=== PATIENT | male | born 1960 | race Caucasian/White ===

== ENCOUNTER 2024-07-06 12:06 | Emergency (ER) | payer OTHER, SELFPAY ==
[2024-07-06 12:07] VITALS: BP 160/95
[2024-07-06 12:38] LABS: % Basophils 0.3 % (0-2); % Eosinophils 0.8 % (0-6); % Monocytes 7.7 % (1.7-9.3); % Neutrophils 75.2 % (42.2-75.2); Absolute Eosinophils 0.1 10^3/uL (0-0.7); Absolute Immature Granulocytes 0.1 10^3/uL (0-0.05); Absolute Lymphocytes 0.9 10^3/uL (1.2-3.4); Absolute Monocytes 0.5 10^3/uL (0.1-0.6); Absolute Neutrophils 4.6 10^3/uL (1.4-6.5); Hematocrit 45.5 % (39.0-52.0); Hemoglobin 16.2 g/dL (13.0-18.0); Mean Corp Hgb Conc. 35.6 g/dL (33.0-37.0); Mean Corpuscular Hgb 31.3 pg (27.0-31.0); Mean Platelet Volume 11.5 fL (7.4-10.4); Nucleated Red Blood Cells % 0 % (-); Platelet Count 153 10^3/uL (130-400); Red Blood Cell Count 5.17 10^6/uL (4.70-6.10); Red Cell Dist. Width 12.5 % (11.5-14.5); White Blood Cell Count 6.1 10^3/uL (4.8-10.8)
[2024-07-06 12:48] LABS: ALT (SGPT) 44 U/L (0-50); AST (SGOT) 29 U/L (17-59); Albumin 4.8 g/dl (3.5-5.0); Alkaline Phosphatase 72 U/L (38-126); Blood Urea Nitrogen 10 mg/dl (9-20); Calcium 9.3 mg/dl (8.4-10.2); Carbon Dioxide 28 mmol/L (22-30); Chloride 102 mmol/L (98-107); Glucose 107 mg/dl (70-99); Potassium 4.5 mmol/L (3.5-5.1); Sodium 138 mmol/L (135-145); Total Bilirubin 0.8 mg/dl (0.2-1.3); Total Protein 6.9 g/dl (6.3-8.2); eGFR > 60.00
[2024-07-06 12:59] LABS: Troponin I < 0.012 ng/ml
[2024-07-06 14:24] VITALS: BP 154/90
[2024-07-06 15:55] VITALS: BMI 33.3
[2024-07-06 15:58] VITALS: BP 152/85
--- NOTE | 2024-07-06 16:31 | ED.GENMED ---
History of Present Illness
General
Chief Complaint: Chest Pain
Source: patient
Exam Limitations: none
Time Seen by Provider: 07/06/24 15:20
Nursing documentation reviewed up to this point in time: agreed with
History of Present Illness
History of Present Illness:
64-year-old male presenting to the emergency department today with concerns of lightheadedness and chest pain that started upon awakening this morning. Has had intermittent symptoms over the past few weeks but has been ongoing today. Symptoms are
now resolved at time of my assessment. Denies associated diaphoresis nausea vomiting. No history of heart disease does have history of GI symptoms occasionally symptoms will be worse after meals.
Review of Systems
Review of Systems
Allergies reviewed?: Yes
All Other Systems: ROS reviewed and negative except as documented in HPI and ROS
Phy Exam
Physical Exam
Physical Exam:
GENERAL: Alert , in no apparent distress
EYE: pupils equal and reactive
NECK: Supple, no significant adenopathy.
ENT: o/p clr, mmm.
CARDIAC: Regular rate and rhythm .
LUNGS: Clear breath sounds bilaterally, no acute respiratory distress, no wheezes/rales/rhonchi
ABDOMEN: Soft, without focal tenderness, no r/g, no cvat
NEUROLOGICAL: Alert and oriented, no focal neuro deficits
SKIN: Warm and dry, skin intact.
MUSCULOSKELETAL: No edema, well perfused.
PSYCH: Normal and appropriate interaction.
Scores
Heart Score for Chest Pain Patients
STEMI patient?: No
History: Slightly or Non-Suspicious
ECG: Normal
Age: >45 - <65 years
Risk Factors: 1 or 2 Risk Factors
Troponin: </= Normal Limit
Heart Score for Chest Pain Patients: 2
Heart Score Risk: 2.5% MACE over next 6 weeks
Course
Orders/Labs/Results
Orders:
Orders
07/06/24 12:09
ECG [Electrocardiogram (*1)] Urgent
Reason for Study: Chest Pain
EKG- Treatment ONCE
07/06/24 12:20
Complete Blood Count/With Diff Urgent
Comprehensive Metabolic Panel Urgent
TSH Reflex To Free T4 Urgent
Comment: ADD ON
Troponin I Urgent
07/06/24 15:20
Chest [CR Chest - 2 Views ] Urgent
Comment:
Reason For Exam: cp
07/06/24 15:37
Add On- LAB Urgent
Tests Added?: tsh free t4
EKG [Electrocardiogram (*1)] Urgent
Reason for Study: Chest Pain
07/06/24 15:38
EKG- Treatment ONCE
07/06/24 16:00
Troponin I Urgent
Abnormal Lab Results
07/06/24
12:20
MCH 31.3 H pg
(27.0-31.0)
MPV 11.5 H fL
(7.4-10.4)
Abs Immat Gran (auto) 0.1 H 10^3/uL
(0-0.05)
Absolute Lymphs (auto) 0.9 L 10^3/uL
(1.2-3.4)
Immature Gran % 1.0 H %
(0-0.5)
Lymphocytes % 15.0 L %
(20.5-51.1)
Glucose 107 H mg/dl
(70-99)
07/06/24 12:20
07/06/24 12:20
Vital Signs
Initial and Last Documented VS:
Initial Vital Signs
Temp Pulse Resp BP Pulse Ox
98.3 F 61 20 160/95 98
07/06/24 12:07 07/06/24 12:07 07/06/24 12:07 07/06/24 12:07 07/06/24 12:07
Last Documented Vital Signs
Temp Pulse Resp BP Pulse Ox
98.3 F 62 18 152/85 97
07/06/24 12:07 07/06/24 15:58 07/06/24 15:58 07/06/24 15:58 07/06/24 15:58
MDM/Problems Addressed
MDM/Problems Addressed:
64-year-old male presenting to the emergency department today with concerns of chest pain. Here blood pressure slightly elevated otherwise vital signs are normal. EKG without acute changes. Heart and lung semination normal. Patient in no
distress. Chest pain is been off and on for multiple weeks slightly worsened today with negative troponin ACS very unlikely. Patient is asymptomatic at the time of my assessment. Chest x-ray without acute abnormalities. EKG and troponin were
repeated troponin negative and EKG unchanged. Stable for discharge at this point. Return precautions given.
*Critical Care Note
Total Time (30-74mins, 75-104mins- exclusive of procedures): Not Applicable
ED Attending Note
-
Portions of this chart may have been created with voice recognition software.� Occasional wrong word or��sound alike� substitutions may have occurred due to the inherent limitations of voice recognition software.
Discharge Plan
Departure
Patient Disposition: Home (Routine Discharge)
Date of Disposition: 07/06/24
Time of Disposition: 16:49
Patient with high blood pressure during this ER visit?: No
Condition: Good
Covid-19: Not Applicable
Discharge Problem:
Chest pain
Instructions: Chest Pain CBC Follow Up
Referrals:
Hayde Kumar, DO [Family Provider] -
Activity Restrictions/Additional Instructions:
You came to the emergency department today with concerns of chest pain and lightheadedness. Here your assessment was reassuring. Please follow close with cardiology and potentially GI if symptoms are persisting. Return for any worsening, new or
concerning symptoms.
Interventions
Interventions:
*Risk Screen - Suicide Last Done: 07/06/24 12:07
*General Assessment Last Done: 07/06/24 12:07
*Neglect/Abuse Screening Last Done: 07/06/24 12:07
ED- Fall Risk Assessment Last Done: 07/06/24 15:56
*ED COVID-19 Vaccine History Last Done: 07/06/24 15:55
ED- Cardiac Assessment Last Done: 07/06/24 15:56
Discharge Date and Time
Print Language: AMHARIC
[2024-07-06 16:33] LABS: Troponin I < 0.012 ng/ml
[2024-07-06 17:15] LABS: TSH Reflex To Free T4 2.31 uIU/ml (0.47-4.68)
[2024-07-06 17:35] VITALS: BP 140/96
== END 2024-07-06 17:40 | disposition home or self-care (01) ==
LOC: EMR 12:06
PROVIDERS: Emergency Medicine; Physician Assistant; EMERGENCY PHYSICIAN Emergency Medicine; FAMILY PHYSICIAN Family Medicine
DX: R07.89 Other chest pain (principal)
CPT/HCPCS: 99285; 71046; 80053; 84443; 84484; 85025; 93005

== ENCOUNTER → 2024-07-19 06:53 | Outpatient (REF) | payer OTHER, SELFPAY | LOC: RCS 06:53 | PROVIDERS: ATTENDING PHYSICIAN Internal Medicine Cardiovascular Disease; FAMILY PHYSICIAN Family Medicine | DX: R07.89 Other chest pain (principal); K21.9 Gastro-esophageal reflux disease without esophagitis; I25.10 Atherosclerotic heart disease of native coronary artery without angina pectoris; I25.84 Coronary atherosclerosis due to calcified coronary lesion | CPT/HCPCS: 93225; 93226; 93306 ==

== ENCOUNTER → 2024-07-19 06:56 | Outpatient (REF) | payer OTHER, SELFPAY | LOC: RCS 06:56 | PROVIDERS: ATTENDING PHYSICIAN Internal Medicine Cardiovascular Disease | DX: R07.89 Other chest pain (principal); R53.83 Other fatigue | CPT/HCPCS: 93017 ==

== ENCOUNTER 2024-07-22 18:51 | Emergency (ER) | payer OTHER, SELFPAY ==
[2024-07-22 19:04] VITALS: BP 160/101
[2024-07-22 19:22] LABS: % Basophils 0.2 % (0-2); % Eosinophils 1.5 % (0-6); % Immature Granulocytes 0.8 % (0-0.5); % Lymphocytes 19.7 % (20.5-51.1); % Neutrophils 69.8 % (42.2-75.2); Absolute Eosinophils 0.1 10^3/uL (0-0.7); Absolute Immature Granulocytes 0.1 10^3/uL (0-0.05); Absolute Lymphocytes 1.2 10^3/uL (1.2-3.4); Absolute Monocytes 0.5 10^3/uL (0.1-0.6); Absolute Neutrophils 4.1 10^3/uL (1.4-6.5); Hematocrit 44.9 % (39.0-52.0); Hemoglobin 16.2 g/dL (13.0-18.0); Mean Corp Hgb Conc. 36.1 g/dL (33.0-37.0); Mean Corpuscular Hgb 31.3 pg (27.0-31.0); Mean Corpuscular Volume 86.8 fL (80.0-94.0); Mean Platelet Volume 10.9 fL (7.4-10.4); Nucleated Red Blood Cells % 0 % (-); Platelet Count 140 10^3/uL (130-400); Red Blood Cell Count 5.17 10^6/uL (4.70-6.10); Red Cell Dist. Width 12.8 % (11.5-14.5); White Blood Cell Count 5.9 10^3/uL (4.8-10.8)
[2024-07-22 19:42] LABS: ALT (SGPT) 37 U/L (0-50); AST (SGOT) 26 U/L (17-59); Albumin 5.3 g/dl (3.5-5.0); Alkaline Phosphatase 76 U/L (38-126); Blood Urea Nitrogen 11 mg/dl (9-20); Calcium 9.7 mg/dl (8.4-10.2); Carbon Dioxide 25 mmol/L (22-30); Chloride 98 mmol/L (98-107); Glucose 104 mg/dl (70-99); Potassium 4.4 mmol/L (3.5-5.1); Sodium 137 mmol/L (135-145); Total Bilirubin 1.1 mg/dl (0.2-1.3); Total Protein 7.4 g/dl (6.3-8.2); eGFR > 60.00
--- NOTE | 2024-07-22 21:51 | ED.GENMED ---
History of Present Illness
General
Chief Complaint: Chest Pain
Source: patient, records and physician
Exam Limitations: none
Time Seen by Provider: 07/22/24 21:22
Nursing documentation reviewed up to this point in time: agreed with
History of Present Illness
History of Present Illness:
64-year-old male presents with chest pain admittedly for few months has reflux, had a workup from cardiology, stress test stress echo, tonight apparently pain went into his arm which is a new symptom for him, no nausea or vomiting or diaphoresis,
his mother had heart disease and , patient had an elevated calcium score apparently, takes Elavil for irritable bowel?, Pressure medicine, and a PPI not take aspirin or nitrates
Past History
Past History
ED Past Medical History: GERD and HTN; Negative Arrthythmia, Asthma, Cancer, CHF, COPD, IDDM, SD or Renal failure
ED Past Surgical History: Negative Cardiac
Social History
Tobacco: Non-smoker
Alcohol: None
Drug: None
Personal:
Living: with family
Employment: Employed
Family History
Family History: CAD
Review of Systems
Review of Systems
All Other Systems: ROS reviewed and negative except as documented in HPI and ROS
Constitutional: Denies fever or fatigue
EENT: Reports no symptoms
Respiratory: Reports no symptoms
Cardiac: Reports chest pain
ABD/GI: Reports no symptoms
: Reports no symptoms
Musculoskeletal: Reports no symptoms
Phy Exam
Physical Exam
Physical Exam:
Physical Exam
General: no apparent distress, not acutely ill
Neck: No jaundice
Heart: s1/s2 regular rate and rhythm, no murmur. equal radial pulses.
Lungs: no acute respiratory distress. clear bilaterally
Abdomen: Nontender
Neuro: alert and oriented. no focal neurological deficits
Skin: no rash
Psychiatric: well kept. interactive and cooperative
Extremities: no edema. no calf tenderness.
Scores
Heart Score for Chest Pain Patients
STEMI patient?: No
History: Moderately Suspicious
ECG: Normal
Age: >45 - <65 years
Risk Factors: 1 or 2 Risk Factors
Troponin: </= Normal Limit
Heart Score for Chest Pain Patients: 3
Heart Score Risk: 2.5% MACE over next 6 weeks
Course
Orders/Labs/Results
Orders:
Orders
07/22/24 18:51
Electrocardiogram (*1) Urgent
Reason for Study: Chest Pain
EKG- Treatment ONCE
07/22/24 19:13
Complete Blood Count/With Diff Urgent
Comprehensive Metabolic Panel Urgent
Lipase Urgent
Comment: ADD ON
07/22/24 21:44
Aspirin 325 mg PO NOW STA
Nitroglycerin Sublingual [Nitrostat (Sublingual)] 0.4 mg SL [id number] PRN
07/22/24 22:06
Troponin I Urgent
07/22/24 23:03
Add On- LAB Urgent
Tests Added?: lipase
Abnormal Lab Results
07/22/24
19:13
MCH 31.3 H pg
(27.0-31.0)
MPV 10.9 H fL
(7.4-10.4)
Abs Immat Gran (auto) 0.1 H 10^3/uL
(0-0.05)
Immature Gran % 0.8 H %
(0-0.5)
Lymphocytes % 19.7 L %
(20.5-51.1)
Glucose 104 H mg/dl
(70-99)
Albumin 5.3 H g/dl
(3.5-5.0)
07/22/24 19:13
07/22/24 19:13
Vital Signs
Initial and Last Documented VS:
Initial Vital Signs
Temp Pulse Resp BP Pulse Ox
97.9 F 71 18 160/101 99
07/22/24 19:04 07/22/24 19:04 07/22/24 19:04 07/22/24 19:04 07/22/24 19:04
Last Documented Vital Signs
Temp Pulse Resp BP Pulse Ox
97.9 F 66 12 160/101 99
07/22/24 19:04 07/22/24 22:15 07/22/24 22:15 07/22/24 19:04 07/22/24 22:15
*Critical Care Note
Total Time (30-74mins, 75-104mins- exclusive of procedures): Not Applicable
Update Note
Update Note:
Update, patient with persistent pain now into his left arm previously, chest pain-free now troponin undetectable prior stress test noted note from cardiology reviewed reviewed with patient will admit him to the hospital serial markers, consideration
for further cardiac testing as outlined by cardiology
11:20 PM change in plan patient refers to go home, cardiology updated,
ED Attending Note
-
Portions of this chart may have been created with voice recognition software.� Occasional wrong word or��sound alike� substitutions may have occurred due to the inherent limitations of voice recognition software.
Discharge Plan
Departure
Patient Disposition: Home (Routine Discharge)
Date of Disposition: 07/22/24
Time of Disposition: 23:00
Admit to: Telemetry
Presentation/result/management discussed w/ accepting MD/DO: Hospitalist
Patient with high blood pressure during this ER visit?: Yes
Condition: Good
Discharge Problem:
Chest pain
Instructions: Chest Pain CBC Follow Up
Prescriptions:
No Action
amitriptyline 10 mg Tablet
10 mg PO HS
pantoprazole 40 mg Tablet,Delayed Release (Dr/Ec)
40 mg PO DAILY
nebivolol 5 mg Tablet
5 mg PO DAILY
cholecalciferol (vitamin D3) [Vitamin D3] 50 mcg (2,000 unit) Tablet
50 mcg PO DAILY
Referrals:
PRIVATE,PHYSICIAN [Family Provider] -
Activity Restrictions/Additional Instructions:
Follow-up with Dr. Kemi vera tomorrow
Interventions
Interventions:
*Risk Screen - Suicide Last Done: 07/22/24 19:04
*General Assessment Last Done: 07/22/24 19:04
*Neglect/Abuse Screening Last Done: 07/22/24 19:04
*ED- Fall Risk Assessment Last Done: 07/22/24 19:04
*ED COVID-19 Vaccine History Last Done: 07/22/24 19:04
ED- Cardiac Assessment Last Done: 07/22/24 22:44
Discharge Date and Time
Print Language: BENGALI
[2024-07-22 22:35] VITALS: BP 143/85
[2024-07-22] MEDS: ASPIRIN 325 MG PO (22:36)
[2024-07-22 22:38] LABS: Troponin I < 0.012 ng/ml
[2024-07-22 23:00] VITALS: BP 132/80
[2024-07-22 23:47] LABS: Lipase 167 U/L (23-300)
== END 2024-07-22 23:36 | disposition home or self-care (01) ==
LOC: EMR 18:51
PROVIDERS: EMERGENCY PHYSICIAN Emergency Medicine
DX: R07.89 Other chest pain (principal); K21.9 Gastro-esophageal reflux disease without esophagitis; I11.0 Hypertensive heart disease with heart failure; I50.9 Heart failure, unspecified; E11.9 Type 2 diabetes mellitus without complications; Z82.49 Family history of ischemic heart disease and other diseases of the circulatory system
CPT/HCPCS: 99283; 80053; 83690; 84484; 85025; 93005

== ENCOUNTER → 2024-07-26 06:25 | Outpatient (REF) | payer OTHER, SELFPAY | LOC: RCS 06:25 | PROVIDERS: ATTENDING PHYSICIAN Internal Medicine Cardiovascular Disease; FAMILY PHYSICIAN Family Medicine | DX: R07.89 Other chest pain (principal); I10 Essential (primary) hypertension; M79.603 Pain in arm, unspecified | CPT/HCPCS: 78452; 93017; A9500 ==

== ENCOUNTER → 2024-08-19 06:32 | Outpatient (REF) | payer OTHER, SELFPAY | LOC: RAD 06:32 | PROVIDERS: ATTENDING PHYSICIAN Internal Medicine Gastroenterology; FAMILY PHYSICIAN Family Medicine | DX: R07.9 Chest pain, unspecified (principal) | CPT/HCPCS: 76700 ==